=== PATIENT | male | born 1950 | race Caucasian/White ===

== ENCOUNTER 2016-07-11 14:11 | Emergency (ER) | payer MEDICARE, BC, OTHER | END 2016-07-11 17:45 | disposition home or self-care (01) | LOC: ER 14:11 | DX: M10.9 Gout, unspecified (principal); M19.032 Primary osteoarthritis, left wrist; I12.9 Hypertensive chronic kidney disease with stage 1 through stage 4 chronic kidney disease, or unspecified chronic kidney disease; E11.22 Type 2 diabetes mellitus with diabetic chronic kidney disease; N18.3 Chronic kidney disease, stage 3 (moderate); Z90.49 Acquired absence of other specified parts of digestive tract; Z79.82 Long term (current) use of aspirin; Z79.899 Other long term (current) drug therapy | CPT/HCPCS: 36415 ==